=== PATIENT | male | born 1980 | race Caucasian/White ===

== ENCOUNTER 2018-03-07 10:34 | Emergency (ER) | payer MEDICAID, SELFPAY ==
[2018-03-07 10:34] VITALS: BP 162/92; PULSE 109; RESP 15; TEMP 36.6; BMI 26.2
--- NOTE | 2018-03-07 11:16 | ED.VISSUMM ---
- ER Visit Summary Date of Service: 03/07/18 Chief Complaint: Accidental left ulnar wrist laceration History of Present Illness: The patient is a 37 M hand dominant. He was working on duct work at his home. It slipped and lacerated his left ulnar side of his wrist. This occurred within the last 1-2 hours. No pulsatile bleeding. Denies other complaints. No foreign body. Patient states that his tetanus is not up-to-date. Denies other injuries. Physical Examination: Well-appearing young male. Vital signs are stable afebrile. H EENT exam unremarkable. Neck nontender. Lungs clear to auscultation bilaterally. Heart regular rhythm no murmur. Abdomen soft nontender. He is moving all 4 extremities. They are neurovascularly intact on the ulnar palmar side. It is at least 3 inches in length. Involves the skin and subcu fat. It does not involve the muscle, bone or any major vessels. Left hand is neurovascularly intact. Strong radial pulse. Normal cap refill touch sensation. Full range of motion all digits of his left hand. Test Results: None Emergency Department Course and Treatment: Tetanus updated. Laceration repair: Left wrist. Approximately 3 inches or 7 cm. Local anesthetic with 1% lidocaine. Wound cleaned with Shur-Clens, copiously irrigated and explored by ER physician. Closed using simple interrupted # 7 4-0 Ethilon sutures. Proper hemostasis wound closure obtained. Patient tolerated procedure well. Treatment Plan: Wound care. Suture removal in 10-14 days. Keep wound clean. Disposition: Discharged Impression: Acute left wrist 7 cm laceration with ER repair Tetanus updated This note was generated with [employer] dictation software. It may contain incorrect words, spelling, and punctuation that were not noted in review of the chart prior to signing ED Disposition - Plan for ED Patient: Disposition: Home or Assisted Living Chief Complaint: Laceration Instructions: ED Laceration Hand Referrals: Rafael Jo MD [Primary Care Provider] - 10-14 Days suture removal Additional Instructions: Keep wound clean. Apply antibiotic ointment daily. Suture removal in 10-14 days. Return if any redness, pus, swelling or other problems.
--- NOTE | 2018-03-07 11:19 | ED.DCSUM_ITS ---
- ER Visit Summary Date of Service: 03/07/18 Chief Complaint: Accidental left ulnar wrist laceration History of Present Illness: The patient is a 37 M hand dominant. He was working on duct work at his home. It slipped and lacerated his left ulnar side of his wrist. This occurred within the last 1-2 hours. No pulsatile bleeding. Denies other complaints. No foreign body. Patient states that his tetanus is not up-to-date. Denies other injuries. Physical Examination: Well-appearing young male. Vital signs are stable afebrile. H EENT exam unremarkable. Neck nontender. Lungs clear to auscultation bilaterally. Heart regular rhythm no murmur. Abdomen soft nontender. He is moving all 4 extremities. They are neurovascularly intact on the ulnar palmar side. It is at least 3 inches in length. Involves the skin and subcu fat. It does not involve the muscle, bone or any major vessels. Left hand is neurovascularly intact. Strong radial pulse. Normal cap refill touch sensation. Full range of motion all digits of his left hand. Test Results: None Emergency Department Course and Treatment: Tetanus updated. Laceration repair: Left wrist. Approximately 3 inches or 7 cm. Local anesthetic with 1% lidocaine. Wound cleaned with Shur-Clens, copiously irrigated and explored by ER physician. Closed using simple interrupted # 7 4- 0 Ethilon sutures. Proper hemostasis wound closure obtained. Patient tolerated procedure well. Treatment Plan: Wound care. Suture removal in 10-14 days. Keep wound clean. Disposition: Discharged Impression: Acute left wrist 7 cm laceration with ER repair Tetanus updated This note was generated with [employer] dictation software. It may contain incorrect words, spelling, and punctuation that were not noted in review of the chart prior to signing ED Disposition - Plan for ED Patient: Disposition: Home or Assisted Living Chief Complaint: Laceration Instructions: ED Laceration Hand Referrals: Rafael Jo MD [Primary Care Provider] - 10-14 Days suture removal Additional Instructions: Keep wound clean. Apply antibiotic ointment daily. Suture removal in 10-14 days. Return if any redness, pus, swelling or other problems.
[2018-03-07] MEDS: Diphth,Pertuss(Acell),Tet Vac 0.5 ML Vial IM (11:34)
[2018-03-07 12:01] VITALS: BP 134/78; PULSE 92; RESP 16; O2SAT 100
--- NOTE | 2018-03-07 12:01 | ED.RN ---
THIS NURSE REVIEWED D/C INSTRUCTIONS WITH PT. PT VERBALIZED UNDERSTANDING OF INSTRUCTIONS. PT DENIES FURTHER NEEDS OR QUESTIONS AT THIS TIME. PT AMBULATES FROM ROOM ON OWN WITHOUT ASSISTANCE FROM STAFF
== END 2018-03-07 12:02 | disposition home or self-care (01) ==
LOC: ED 11:57
PROVIDERS: Emergency Provider Emergency Medicine; Family Provider Family Medicine; PCP Family Medicine
DX: S61.512A Laceration without foreign body of left wrist, initial encounter (principal); W27.8XXA Contact with other nonpowered hand tool, initial encounter; Y93.9 Activity, unspecified; Y92.009 Unspecified place in unspecified non-institutional (private) residence as the place of occurrence of the external cause; Y99.9 Unspecified external cause status; Z23 Encounter for immunization; Z72.0 Tobacco use
CPT/HCPCS: 12002; 90471; 90715; 99282

== ENCOUNTER 2020-07-02 16:11 | Emergency (ER) | payer MEDICAID, SELFPAY ==
[2020-07-02 16:11] VITALS: BP 139/88; PULSE 121; RESP 18; TEMP 36.3; O2SAT 98; BMI 25.1
--- NOTE | 2020-07-02 16:25 | ED.VIS.BACK ---
History of Present Illness Chief Complaint: Numb/Ting Informant: Patient Onset: Weeks Context: Sudden Onset Injury: - - Leaning on his left side while incarcerated end of May Timing: Intermittent Quality: Sharp, Throbbing, - - Shooting pain Location: Buttock, Left Leg - Patient reports pain left lower back that goes to his buttocks and lateral aspect of the left lower extremity. The pain does not follow a dermatomal pattern. Current Severity: Mild Maximum Severity: Severe Worsened by: improves with: - - Nothing specific Relieved by: Nothing Associated Symptoms: Numbness, Tingling, Radiation to Left Leg, - - He denies fever, chills, bowel or bladder dysfunction, saddle paresthesia or anesthesia. He reports intermittent buzzing sensation head of his penis. Narrative: Patient is a 40-year-old male who states his symptoms started while he was incarcerated. He was leaning on his left side. He states his leg buckled and required assistance by multiple correctional officers. He states when he was picked up there was a loud pop. He was released from shelter on June 28. He states he is able to perform sexually. He has no other complaints other than what has been documented. Prior similar symptoms: No Recent Illness/Hospitalization: No - Past Medical History (1) No significant past medical history Status: Acute Past Medical History - Allergies and Home Meds Allergies/Adverse Reactions: Allergies No Known Allergies Allergy (Verified 07/02/20 16:15) Primary Care Physician: Rafael Jo MD [Primary Care Provider] - Prior records reviewed: No Past Medical History: None Surgical History: no surgical history Lives: Spouse/ Significant Other Smoking Status: Current every day smoker Alcohol: Rare Drugs: None Review of Systems General: Denies: Chills, Fever, Malaise, Subjective Eyes: Denies: Visual changes - bilaterally, Blurred Vision - bilaterally Cardiovascular: Denies: Chest pain, Palpitations Respiratory: Denies: Dyspnea, Cough, Dyspnea on exertion Gastrointestinal: Denies: Abdominal pain, Nausea, Vomiting, Diarrhea, Melena, Hematochezia Genitourinary: Denies: Dysuria, Hematuria, Frequency Musculoskeletal: Reports: Back pain, Extremity Pain - Patient complains of pain and numbness lateral aspect of the left lower extremity that passes the knee to the mid lateral calf. Denies: Myalgias, Arthralgias, Neck pain, Swelling Skin: Denies: Rash, Wounds Neurological: Reports: Numbness. Denies: Headache, Weakness, Parasthesia Endocrine: Denies: Polyuria, Polydipsia Hematologic: Denies: Easy bruising, Easy bleeding Physical Exam Vital Signs/Narrative: Vital Signs Temp Pulse Resp BP Pulse Ox 07/02/20 16:11 97.4 F L 121 H 18 139/88 H 98 Inital Vital Signs reviewed: Yes - Was observed walking to the room and his gait was normal. General: Well nourished, Well developed Head: Normocephalic, Atraumatic Eyes: Perrl, EOMI. Negative for: Pale conjunctiva, Scleral icterus Neck: Supple, Nontender, No lymphadenopathy, No JVD Cardiovascular: Regular rate, Regular rhythm, No murmurs, Normal S1, Normal S2 Respiratory: No distress, CTA bilaterally Abdomen: Soft, Nontender, Nondistended, Normal bowel sounds Rectal: Deferred Back: Normal Inspection, Paraspinal Tenderness, Negative SLR - Right, Negative SLR - Left, - - Crossover test was negative.. Negative for: Surgical Scar, Well-Healed, Spinal tenderness, CVA tenderness, Positive SLR - Right, Positive SLR - Left Extremeties: Nontender, No edema, Strong Pulses, Symmetric. Negative for: Tenderness, Edema Skin: Normal color, No rash, No Trauma. Negative for: Cyanosis, Diaphoresis, Jaundice, Pallor, Rash Neuro: Alert, Oriented, Normal Strength, Normal Sensation, Normal DTR, Normal Gait, Normal Reflexes - Patella and ankle reflex are 1+ and symmetric. Reflexes: Right Patellar, Right Achilles, Left Patellar, Left Achilles, - - Reflexes are 1+ and symmetric. Negative for: Right Clonus, Right Babinski, Left Clonus, Left Babinski Psychological: - - Affect is blunted. Diagnostic/Tx/Re-eval - Medical Decision Making Patient stated he requested an MRI while he was incarcerated. He states x-rays were performed and were negative. He presents now believing he needs an MRI of his back. When asked to ambulate in the room in the presence of his nurse he grabbed his low back. There was no foot drop. He is able to walk on heels and toes. He is able to perform a 1 legged squat right and left. Patient was informed that his exam is not indicative of a acute herniated disc. He was informed I do not have an explanation for the intermittent tingling sensation of his penis. Of note when patient was asked to raise his left leg he complained of no pain. When he was asked to raise his left leg he complained of bilateral low back pain. This is not consistent with a muscle strain. Patient has no contraindication NSAIDs. He was prescribed NSAIDs and recommend that he follow-up with his primary care physician. His primary care physician at the [facility] has retired. He was given a new person to follow-up with. ED Disposition - Plan for ED Patient: Disposition: Home or Assisted Living Diagnosis: Pain of back and left lower extremity Instructions: ED MARIANGEL, MAYKEL Back Pain (Acute or Chronic) Prescriptions: Naproxen [Naprosyn] 500 mg PO BID #14 tab Transmission Status: Pending to [id number] Referrals: Rafael Jo MD [Primary Care Provider] - 3-5 Days if not improving
[2020-07-02] MEDS: Naproxen 250 MG Tablet 500 MG PO (16:41)
== END 2020-07-02 16:48 | disposition home or self-care (01) ==
LOC: ED 16:35
PROVIDERS: Emergency Provider Emergency Medicine
DX: M79.605 Pain in left leg (principal); M54.5 Low back pain; F17.200 Nicotine dependence, unspecified, uncomplicated; R20.2 Paresthesia of skin
CPT/HCPCS: 99283